=== PATIENT | female | born 1985 | race Caucasian/White ===

== ENCOUNTER 2021-03-18 | Outpatient (REF) | payer OTHER, SELFPAY ==
[2021-03-18 23:58] LABS: CT PCR NOT DETECTED (Not Detect.); NG PCR NOT DETECTED (Not Detect.)
== END 2021-03-18 00:01 | disposition home or self-care (01) ==
LOC: HO.LAB
PROVIDERS: Visit Provider Internal Medicine
DX: Z11.3 Encounter for screening for infections with a predominantly sexual mode of transmission (principal)
CPT/HCPCS: 87491; 87591

== ENCOUNTER 2022-01-25 10:40 | Outpatient (REF) | payer OTHER, SELFPAY ==
[2022-01-25 13:42] LABS: MANUAL DIFF FLAG NO
[2022-01-25 13:45] LABS: Basophils Absolute Auto 0.1 X10*3/uL (0.0-0.2); Basophils Percent Auto 0.9 % (0-2); Eosinophils Percent Auto 0.7 % (0-4); Hematocrit 42.2 % (37.0-47.0); Hemoglobin 14.1 g/dl (12.0-16.0); Imm Gran Abs Auto 0.02 X10*3/uL (0.00-0.03); Imm Gran Pct Auto 0.3 % (0.0-0.4); Lymphocytes Absolute Auto 2.2 X10*3/uL (1.2-4.9); Lymphocytes Percent Auto 38.2 % (20-40); Mean Corpuscular HGB Conc 33.4 g/dl (31.0-35.0); Mean Corpuscular Hemoglobin 31.5 pg (27.0-33.0); Mean Corpuscular Volume 94.2 fL (80.0-98.0); Mean Platelet Volume 10.2 fL (9.4-12.3); Monocytes Absolute Auto 0.6 X10*3/uL (0.1-1.2); Monocytes Percent Auto 11.1 % (2-11); Neutrophils Absolute Auto 2.8 x10*3/uL (2.0-8.3); Neutrophils Percent Auto 48.8 % (45-73); Platelet Count 338 X10*3/uL (160-400); Red Blood Count 4.48 X10*6/uL (4.20-5.50); Red Cell Distribution Width 12.3 % (11.0-16.0); White Blood Count 5.8 X10*3/uL (4.8-10.8)
[2022-01-25 14:04] LABS: Alanine Aminotransferase 13 U/L (0-31); Albumin Level 4.7 g/dL (3.5-5.0); Alkaline Phosphatase 77 U/L (39-117); Anion Gap 11 (12-20); Aspartate Amino Transferase 14 U/L (5-31); Bilirubin Total 0.7 mg/dL (0.0-1.0); Blood Urea Nitrogen 9 mg/dL (9-16); Calcium 9.1 mg/dL (8.4-10.2); Carbon Dioxide 27 mmol/L (22-29); Chloride 101 mmol/L (96-108); Cholesterol 176 mg/dL; Estimated Glomerular Filt Rate > 60; Glucose Fasting 86 mg/dL (60-99); HDL Cholesterol 51 mg/dL; Iron 151 mcg/dL (30-160); LDL Cholesterol Calculated 109 mg/dl; Percent Iron Saturation 40 % (15-50); Sodium 135 mmol/L (135-145); Total Iron Binding Capacity 376 mcg/dL (228-428); Total Protein 6.9 g/dL (6.5-8.0); Triglycerides 80 mg/dL; Unsaturated Iron Binding 225 ug/dL
[2022-01-25 14:17] LABS: Syphilis Screen Nonreactive (Nonreactive)
[2022-01-25 14:24] LABS: TSH reflex Free T4 1.48 uIU/mL (0.32-4.0)
[2022-01-25 14:34] LABS: Folate 17.2 ng/mL (> or = 4.0); Vitamin B12 726 pg/mL (200-900)
[2022-01-25 16:22] LABS: CT PCR NOT DETECTED (Not Detect.); NG PCR NOT DETECTED (Not Detect.)
[2022-01-26 08:33] LABS: HBS Num1 28.96 mIU/mL (0-7.99); HBc Num1 0.15 S/CO (0.00-0.79); Hepatitis B Core Antibody Nonreactive (Nonreactive); ~HepC Num1 0.07 S/CO (0.00-0.79); ~Hepatitis B Surface Antibody REACTIVE (Nonreactive); ~Hepatitis C Antibody Nonreactive (Nonreactive)
[2022-01-26 08:43] LABS: HBsAGNum1 0.18 S/CO (0.00-0.99); HIV AB/AG Nonreactive (Nonreactive); HIV Num 1 0.07 S/CO (0.00-0.99); Hepatitis B Surface Antigen Negative (Negative)
== END 2022-01-25 10:41 | disposition home or self-care (01) ==
LOC: HO.HMGCLDS 10:40
PROVIDERS: PCP Internal Medicine; Visit Provider Internal Medicine
DX: Z00.00 Encounter for general adult medical examination without abnormal findings (principal); Z11.4 Encounter for screening for human immunodeficiency virus [HIV]; Z11.3 Encounter for screening for infections with a predominantly sexual mode of transmission; Z78.9 Other specified health status; Z83.49 Family history of other endocrine, nutritional and metabolic diseases
CPT/HCPCS: 36415; 80053; 80061; 82306; 82607; 82746; 83540; 84443; 85025; 86704; 86706; 86780; 86803; 87340; 87389; 87491; 87591

== ENCOUNTER → 2022-03-22 11:07 | Outpatient (BNVA) | payer OTHER, SELFPAY | PROVIDERS: PCP Internal Medicine; Referring Provider Internal Medicine; Visit Provider Surgery | DX: K64.4 Residual hemorrhoidal skin tags (principal); D17.1 Benign lipomatous neoplasm of skin and subcutaneous tissue of trunk | CPT/HCPCS: 46600 ==

== ENCOUNTER 2022-03-27 11:00 | Outpatient (REF) | payer OTHER, SELFPAY ==
[2022-03-27 14:45] LABS: Syphilis Screen Nonreactive (Nonreactive)
[2022-03-27 15:28] LABS: CT PCR NOT DETECTED (Not Detect.); NG PCR NOT DETECTED (Not Detect.)
[2022-03-28 05:03] LABS: HIV AB/AG Nonreactive (Nonreactive); HIV Num 1 0.06 S/CO (0.00-0.99); ~HepC Num1 0.08 S/CO (0.00-0.79); ~Hepatitis C Antibody Nonreactive (Nonreactive)
== END 2022-03-27 11:01 | disposition home or self-care (01) ==
LOC: HO.HMGCLDS 11:00
PROVIDERS: PCP Internal Medicine; Visit Provider Internal Medicine
DX: Z11.3 Encounter for screening for infections with a predominantly sexual mode of transmission (principal); Z11.4 Encounter for screening for human immunodeficiency virus [HIV]
CPT/HCPCS: 86780; 86803; 87389; 87491; 87591

== ENCOUNTER → 2022-06-08 11:03 | Outpatient (REF) | payer OTHER, SELFPAY | LOC: HO.SL 11:03 | PROVIDERS: PCP Internal Medicine; Visit Provider Internal Medicine | DX: G47.30 Sleep apnea, unspecified (principal); R06.83 Snoring | CPT/HCPCS: 95806 ==

== ENCOUNTER 2022-07-03 07:55 | Outpatient (REF) | payer OTHER, SELFPAY ==
[2022-07-03 07:59] VITALS: BMI 24.3
[2022-07-03 08:01] VITALS: BP 124/80; PULSE 84; RESP 16; TEMP 36.7; O2SAT 98
--- NOTE | 2022-07-03 08:56 | W.PM.OPN ---
Operative Note Operative Note Date of Service: 07/03/22 Narrative: Preop diagnosis: Lipoma, back Postop diagnosis: Large lipoma, back Procedure: Excision of a large lipoma under local anesthesia from the back Surgeon: Suleiman Sauceda MD The patient is a 36-year-old female with a large lipoma on the back. . She wanted this removed. She understood the technique of the procedure under local anesthesia. She was brought to the minor procedure room and placed in prone position. The area of the lipomas prepped and draped. Lidocaine 1% was used for local anesthesia. I made an incision in the skin overlying the lipoma using blade 15. And this was carried down through the full-thickness of the skin and subcutaneous fat until I was able to see lipomatous tissue. I sharply dissected the lipoma off the rest of the subcutaneous layer. The lipoma extended deep into the subcutaneous layer and actually was much larger than initially thought of on examination. We had to do a lot of dissection using the Metzenbaum scissors until able to completely release the lipoma off posteriorly from the deeper subcutaneous tissue. The lipoma measured about 6.5 cm x 4 cm in diameter. I copies irrigated. I made sure that there was good hemostasis. Once hemostasis was confirmed, I closed the incision with full-thickness nylon 3-0 interrupted sutures. Dressings were applied. The procedure was completed The patient tolerated procedure well. There were no complication noted. Estimated blood loss about 25 cc The patient was given wound care instructions and will be seen in the office for postop visit.
== END 2022-07-03 07:56 | disposition home or self-care (01) ==
LOC: HO.MS 07:55
PROVIDERS: PCP Internal Medicine; Visit Provider Surgery
PROC: (CPT 21931; principal; 2022-07-03 08:00)
DX: D17.1 Benign lipomatous neoplasm of skin and subcutaneous tissue of trunk (principal)
CPT/HCPCS: 21931; 88304

== ENCOUNTER 2022-08-30 14:05 | Outpatient (REF) | payer OTHER, SELFPAY ==
--- NOTE | ~2022-08-30 | US_ITS ---
EXAMINATION: MM DIAGNOSTIC DIGITAL BREAST TOMOSYNTHESIS, BILATERAL US TARGETED BREAST, RIGHT CLINICAL INFORMATION: Right breast mass 7 o'clock position. Patient says that this has come and gone with her period. COMPARISON: Mammography: None. TECHNIQUE: Digital breast tomosynthesis is performed in both the craniocaudal and mediolateral oblique views along with computer-aided detection (CAD). Synthesized 2D images are generated from the tomosynthesis. Targeted right breast ultrasound. FINDINGS: The breasts are extremely dense, which lowers the sensitivity of mammography (ACR BI-RADS breast composition Category d). There are a few partially-circumscribed densities noted within the right breast with one dominant one in the anterior aspect of the right breast measuring approximately 3.4 x 1.9 x 2.1 cm in size. No significant left breast abnormalities appreciated. Numerous simple and minimally complex cysts are seen throughout the right breast. At approximately the 1 o'clock position of the right breast 1 cm from the nipple there is a solid heterogeneous echotexture hypoechoic circumscribed lesion without internal vascularity and with some mild distal sound enhancement likely representing a fibroadenoma. Ultrasound-guided core biopsy is recommended. Results are discussed with the patient at time of visit. US/US breast RT limited IMPRESSION: Numerous right breast cysts. Single solid lesion as described above within the right breast for which ultrasound-guided core biopsy is recommended. The above recommendation will be called to referring provider's office by the mammography center lacquer dipping machine operator. ASSESSMENT: BI-RADS 4: Suspicious (subcategory 4A: Low suspicion for malignancy) RECOMMENDATION: Ultrasound-guided core biopsy. This patient's information was entered into a reminder system with a target due date for their next mammogram. Report called to Chelsy at the referring provider's office.
== END 2022-08-30 14:06 | disposition home or self-care (01) ==
LOC: HO.MAMMO 14:05
PROVIDERS: Visit Provider Internal Medicine
DX: N63.11 Unspecified lump in the right breast, upper outer quadrant (principal)
CPT/HCPCS: 76642; 77062; 77066

== ENCOUNTER 2022-09-11 10:03 | Outpatient (REF) | payer OTHER, SELFPAY ==
--- NOTE | ~2022-09-11 | MM_ITS ---
EXAMINATION: ULTRASOUND GUIDED CORE BIOPSY BREAST, RIGHT POST PROCEDURE DIGITAL BREAST TOMOSYNTHESIS, RIGHT CLINICAL INFORMATION: Oval mass central 1:00 right breast noted on recent diagnostic imaging. Age 36. Patient notes palpable area for tissue sampling has been chronic without significant change past several years. COMPARISON: Diagnostic mammography and right breast ultrasound 08/30/2022. FINDINGS: Proper informed consent is obtained from the patient after discussion of the procedure, potential risks and complications, and alternatives. Patient was given an opportunity for questions. The patient appeared to understand. The patient consented to the procedure and signed the consent form. GUIDANCE: Ultrasound-guided; aseptic technique. LESION: Heterogeneous oval hypoechoic mass central 1:00 anterior right breast measuring 3.4 x 1.9 x 2.1 cm. Differential considerations include fibroadenoma, PASH, other. APPROACH: Oblique mediolateral. ANESTHESIA: 10 mL carbonated 1% lidocaine. DERMATOTOMY: Single skin racquel dermatotomy performed. NEEDLE: 14-gauge Achieve core biopsy device with 13.5-gauge co-axial guide needle. CORES: 5. CLIP: HydroMARK; shape: butterfly. POST PROCEDURE UNILATERAL DIGITAL BREAST TOMOSYNTHESIS: The post biopsy mammogram is performed in separate room using separate digital mammography equipment from the biopsy procedure. CC and ML views are obtained. 2-D synthesized images are generated from the tomography. The breasts are heterogeneously dense, which may obscure small masses (breast composition category: c). The clip marker is in position. No gross hematoma. The patient tolerated the procedure well. No immediate complications. Home instructions reviewed with the patient. Final pathology results are pending. MM/MM tomosynthesis diagnostic RT IMPRESSION: 1. Status post ultrasound-guided core biopsy right breast. 2. Clip placed: HydroMARK; shape: butterfly. 3. Pathology pending. An addendum report will be issued.
[2022-09-11] MEDS: Lidocaine HCl 1 % 20 ML VIAL 9 ML SUBCUT (11:21)
[2022-09-11] MEDS: Sodium Bicarbonate 8.4% 50 MEQ/50 ML VIAL SUBCUT (11:22)
== END 2022-09-11 10:04 | disposition home or self-care (01) ==
LOC: HO.MAMMO 10:03
PROVIDERS: PCP Internal Medicine; Visit Provider Internal Medicine
DX: N63.12 Unspecified lump in the right breast, upper inner quadrant (principal)
CPT/HCPCS: 19083; 77061; 77065; 88305

== ENCOUNTER 2023-01-05 10:26 | Outpatient (REF) | payer OTHER, SELFPAY ==
[2023-01-05 12:53] LABS: MANUAL DIFF FLAG NO
[2023-01-05 13:00] LABS: Basophils Absolute Auto 0.1 X10*3/uL (0.0-0.2); Basophils Percent Auto 1.6 % (0-2); Eosinophils Absolute Auto 0.1 X10*3/uL (0.0-0.4); Eosinophils Percent Auto 1.3 % (0-4); Hematocrit 41.7 % (37.0-47.0); Imm Gran Abs Auto 0.01 X10*3/uL (0.00-0.03); Imm Gran Pct Auto 0.2 % (0.0-0.4); Lymphocytes Absolute Auto 2.1 X10*3/uL (1.2-4.9); Mean Corpuscular HGB Conc 33.6 g/dl (31.0-35.0); Mean Corpuscular Hemoglobin 31.1 pg (27.0-33.0); Mean Corpuscular Volume 92.7 fL (80.0-98.0); Mean Platelet Volume 9.7 fL (9.4-12.3); Monocytes Absolute Auto 0.5 X10*3/uL (0.1-1.2); Monocytes Percent Auto 10.4 % (2-11); Neutrophils Absolute Auto 1.8 x10*3/uL (2.0-8.3); Neutrophils Percent Auto 39.5 % (45-73); Platelet Count 353 X10*3/uL (160-400); Red Cell Distribution Width 12.8 % (11.0-16.0); White Blood Count 4.5 X10*3/uL (4.8-10.8)
[2023-01-05 13:12] LABS: Glucose Fasting 88 mg/dL (60-99)
[2023-01-05 13:52] LABS: Folate 15.6 ng/mL (> or = 4.0); TSH reflex Free T4 1.87 uIU/mL (0.32-4.0); Vitamin D 25-OH Total 30.8 ng/mL (>30)
[2023-01-05 13:54] LABS: Vitamin B12 564 pg/mL (200-900)
[2023-01-08 12:02] LABS: HIV AB/AG Nonreactive (Nonreactive); HIV Num 1 0.05 S/CO (0.00-0.99)
== END 2023-01-05 10:27 | disposition home or self-care (01) ==
LOC: HO.HMGCLDS 10:26
PROVIDERS: Visit Provider Internal Medicine
DX: Z00.00 Encounter for general adult medical examination without abnormal findings (principal); Z13.1 Encounter for screening for diabetes mellitus; Z11.3 Encounter for screening for infections with a predominantly sexual mode of transmission; Z11.4 Encounter for screening for human immunodeficiency virus [HIV]; B00.9 Herpesviral infection, unspecified; L65.9 Nonscarring hair loss, unspecified; Z78.9 Other specified health status; R53.83 Other fatigue; E55.9 Vitamin D deficiency, unspecified; Z83.3 Family history of diabetes mellitus
CPT/HCPCS: 36415; 82306; 82607; 82746; 82947; 84443; 85025; 87389

== ENCOUNTER 2023-05-30 12:59 | Outpatient (REF) | payer OTHER, SELFPAY ==
[2023-05-31 06:47] LABS: CT PCR NOT DETECTED (Not Detect.); NG PCR NOT DETECTED (Not Detect.)
[2023-05-31 15:20] LABS: BV Int Neg Control Negative (Negative); BV Int Pos Control Positive (Positive)
[2023-06-05 05:09] LABS: HPV mRNA E6/E7 rflx Not Detected (Not Detected)
== END 2023-05-30 13:00 | disposition home or self-care (01) ==
LOC: HO.LNP 12:59
PROVIDERS: PCP Internal Medicine; Visit Provider Advanced Practice Midwife
DX: Z01.419 Encounter for gynecological examination (general) (routine) without abnormal findings (principal); Z11.51 Encounter for screening for human papillomavirus (HPV); Z20.2 Contact with and (suspected) exposure to infections with a predominantly sexual mode of transmission
CPT/HCPCS: 0353U; 87480; 87510; 87624; 87660; 88142

== ENCOUNTER 2023-05-30 12:59 | Outpatient (AMB) | payer OTHER, SELFPAY ==
[2023-05-30 13:22] VITALS: BP 122/80; BMI 25.4
--- NOTE | 2023-05-30 13:22 | A.OFFVIS_ITS ---
Intake Vital Signs 05/30/23 13:22 Height 5 ft 2.5 in Weight 141 lb BMI 25.4 BP 122/80 Intake Visit Reasons: New patient Annual Intake Note: would like to remove IUD Leadership Development Manager Required: No Information Interpreted: non-clinical & clinical Protective Signal Superintendent: Protective Signal Superintendent Present (Aidyn) Allergies No Known Allergies Allergy (Verified 05/30/23 13:26) Medication List - Last Reconciled 05/30/23 by Tamera Colmenares CNM cholecalciferol (vitamin D3) 25 mcg PO DAILY copper (ParaGard T 380A) intrauterine valacyclovir 1,000 mg PO TID 7 days Is last menstrual period known: Yes Last menstrual period: 05/03/23 Post menopausal: No HPI New patient Annual HPI Details Is here for new physician gynecologist exam. She describes herself as healthy. She has had a ParaGard IUD for number of years 4 years in total this is her 2nd 1 the 1st 1 she pulled out by accident when she thought it was a tampon [facility] loves the ParaGard IUD and wishes she had had it earlier as she did not feel well on hormones. She would like it removed because she and her partner of some number of years have decided they are ready to have a baby and she will be very happy if it could be taken out today so they could start. She takes a multivitamin every day and she eats very healthy and she does hot yoga. She has had in the past herpes infection around her right eye and for that she takes valacyclovir if she is aware of situations where it might recur for instance if she is in the out the hot sun her something it has been since she was a baby. She has never had it genitaly or anywhere else. She did have an abnormal Pap smear some years ago and she had a colposcopy done at [facility] and everything was okay. Patient also has a history of very having very lumpy breasts and she had a mammogram and she had a breast biopsy with Dr. Denny and was told that everything is fine and that she just has very lumpy breast and her next mammogram will be at age 42. 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 Screen for STD (sexually transmitted disease) Vegan diet Surgical History No pertinent past surgical history Family History (Updated 05/30/23 @ 13:28 by TAYO Méndez) Father History of hypertension Hx of diabetes mellitus Linda's thyroiditis Mother History of hypertension Substance use disorder Paternal Grandmother Diabetes mellitus Family/Other Uterine cancer Social History Housing: Apartment Alcohol intake: current Patient Tobacco Use Status: Former Tobacco user Years Smoked: 7 e-Cigarette/Vaping Use: Former Use service: No Current occupational status: employed Cognitive needs: No Hearing needs: No Vision needs: No Female Reproductive History Menstrual Age of Menarche: 12 Duration of menses: 3-5 days Date of last menstrual period: 05/03/23 control method: copper IUCD Total pregnancies: 0 Date of Mammogram: 09/11/22 Physical Exam Vital Signs: Last Vital Signs BP 122/80 05/30/23 13:22 BMI result Body Mass Index 25.4 Const General: healthy appearing, comfortable, no acute distress, well developed and alert Nutritional Appearance: average body habitus Orientation/consciousness: patient oriented x3 Limitations: no limitations HEENT Head: Yes normocephalic Neck Neck: Yes normal visual inspection Thyroid: Thyroid normal Chest Chest palpation & inspection: normal inspection of the chest Breast/axilla inspection: normal inspection of the breasts and normal inspection of the axillae Breast/axilla palpation: normal palpation of the breasts and normal palpation of the axillae Resp Effort & Inspection: normal respiratory effort GI Inspection: Yes normal to inspection, No Abdominal wall edema and No distended Palpation (GI): Soft to palpation and nontender Other: After discussing pre conception issues at length with her she was very clear she would love to have a taken out today. The ParaGard strings were easily visible and were grasped with ring forceps and I had her give A/B cough and it did not budge and I repeated the procedure at her request it also did not budge this time she did not feel anything and was not uncomfortable at all I am ordering of the ultrasound to assess on its location and be sure it is not imbedded. She and I will have a tele visit after that but her follow-up visit will be with Dr. Ponce to discuss removal. Depending on the findings of the ultrasound we may have her come with her menses as it may make it easier. I did send her prescription for vitamins so she can start those now. I also gave her a list of [facility] practices is that was where she would like to go for delivery and care and I recommend she seek out care with the folks who would be involved in her delivery though she would like to stay here until she can establish care there.. At this time given that she still has the IUD in she can probably wait to make those appointments. General: Yes bladder normal to palpation External Female Exam: normal external appearance and normal appearance of the urethra Speculum Exam - Vagina: normal appearance of the vagina, normal palpation and normal vaginal discharge Speculum Exam - Cervix: normal appearance of the cervix, normal palpation and nontender Bimanual exam- vagina & uterus: normal bimanual exam, normal palpation, uterine size normal, bladder normal to palpation, consistency normal, normal palpation, uterine mobility normal, uterine shape normal, No Cervical tenderness present, non-tender and no cervical motion tenderness Bimanual Exam- Adnexa, other: normal adnexae, no masses, normal and No adnexal tenderness Neuro General: patient oriented x3 Assessment & Plan Assessment & Plan (1) Breast nodule: Code(s): N63.0 - Unspecified lump in unspecified breast (2) Screen for STD (sexually transmitted disease): Code(s): Z11.3 - Encounter for screening for infections with a predominantly sexual mode of transmission (3) Cervical cancer screening: Code(s): Z12.4 - Encounter for screening for malignant neoplasm of cervix (4) Attempted IUD removal, unsuccessful: Code(s): Z53.8 - Procedure and treatment not carried out for other reasons; Z97.5 - Presence of (intrauterine) contraceptive device (5) Family planning education, guidance, and counseling: Code(s): Z30.09 - Encounter for other general counseling and advice on contraception (6) Hx of abnormal cervical Pap smear: Code(s): Z87.42 - Personal history of other diseases of the female genital tract Plan -----Discussed in this visit the following: healthy balanced diet, regular and consistent exercise, getting recommended health screens, doing the best she can for her particular health concerns, kegel exercises, pap smear screening and followup recommendations, mammography screening and SBE, normal changes in cycles in her life stage--- . A discussed her general health and issues to be conscious of when thinking about conception this will be a good time to start vitamins. Discussed avoiding toxic situations in general and we did discuss general overall pre gnancy preparation. -------- After discussing pre conception issues at length with her she was very clear she would love to have a taken out today. The ParaGard strings were easily visible and were grasped with ring forceps and I had her give A/B cough and it did not budge and I repeated the procedure at her request it also did not budge this time she did not feel anything and was not uncomfortable at all I am ordering of the ultrasound to assess on its location and be sure it is not imbedded. She and I will have a tele visit after that but her follow-up visit will be with Dr. Ponce to discuss removal. Depending on the findings of the ultrasound we may have her come with her menses as it may make it easier. I did send her prescription for vitamins so she can start those now. I also gave her a list of [facility] practices is that was where she would like to go for delivery and care and I recommend she seek out care with the folks who would be involved in her delivery though she would like to stay here until she can establish care there.. At this time given that she still has the IUD in she can probably wait to make those appointments. Orders: Orders Bacterial Vaginosis Panel Today Z01.419 - Encounter for gynecological examination (general) (routine) without abnormal findings CT NG by PCR Today Z01.419 - Encounter for gynecological examination (general) (routine) without abnormal findings US pelvic and transvaginal Today N63.0 - Unspecified lump in unspecified breast, Z11.3 - Encounter for screening for infections with a predominantly sexual mode of transmission, Z12.4 - Encounter for screening for malignant neoplasm of cervix, Z30.09 - Encounter for other general counseling and advice on contraception, Z53.8 - Procedure and treatment not carried out for other reasons, Z97.5 - Presence of (intrauterine) contraceptive device Pap Smear Today Z01.419 - Encounter for gynecological examination (general) (routine) without abnormal findings Medications: New PNV,calcium [id number] acid 27 mg iron- 1 mg ( Vitamins Plus Low Iron) 1 tab PO DAILY 90 tabs 1RF Coding Level of Care Code New Pt Prev Care 18-39yr([id number] Diagnoses Breast nodule N63.0 Screen for STD (sexually transmitted disease) Z11.3 Cervical cancer screening Z12.4 Attempted IUD removal, unsuccessful Z53.8; Z97.5 Family planning education, guidance, and counseling Z30.09 Hx of abnormal cervical Pap smear Z87.42
== END 2023-05-30 15:00 | disposition home or self-care (01) ==
LOC: HO.HWS 12:59
PROVIDERS: PCP Internal Medicine; Visit Provider Advanced Practice Midwife
DX: Z01.419 Encounter for gynecological examination (general) (routine) without abnormal findings (principal); N63.0 Unspecified lump in unspecified breast; Z11.3 Encounter for screening for infections with a predominantly sexual mode of transmission; Z53.8 Procedure and treatment not carried out for other reasons; Z97.5 Presence of (intrauterine) contraceptive device; Z30.09 Encounter for other general counseling and advice on contraception; Z87.42 Personal history of other diseases of the female genital tract
CPT/HCPCS: 99385

== ENCOUNTER 2023-05-31 13:45 | Outpatient (REF) | payer OTHER, SELFPAY ==
--- NOTE | ~2023-05-31 | US_ITS ---
EXAMINATION: US PELVIS CLINICAL INFORMATION: Status post ICD placement; the last menstrual period was on 04/23/2023. COMPARISON: None available. TECHNIQUE: Ultrasound of the pelvis is performed using both transabdominal and transvaginal transducers along with Doppler. Transvaginal imaging is performed due to inadequate visualization transabdominally. FINDINGS: Uterus: The uterus is anteverted and measures 8.9 x 3.3 x 4.6 cm. The uterus is anteverted and anteflexed. The double wall endometrial thickness is 1.8 mm. An intrauterine device is seen, situated somewhat low within the lower uterine segment and cervix. The uterus is smooth in contour and has normal myometrial echogenicity. No visible fibroid. Adnexa: Both ovaries are visualized. There is normal color flow to the adnexa. There is no ovarian torsion. There is a small amount nonspecific free fluid in the cul-de-sac. Right ovary measures 4.0 x 2.8 x 2.7 cm, volume 15.8 mL. Multiple physiologic follicles are incidentally seen. Left ovary measures 3.5 x 2.0 x 2.0 cm, volume 7.3 mL. Multiple physiologic follicles are incidentally seen. US/US pelvic and transvaginal IMPRESSION: 1. An intrauterine device is seen, situated somewhat low within the lower uterine segment and cervix. 2. There is abnormal thickening of the endometrial stripe to 1.8 cm. Gynecology evaluation and management is recommended, with consideration for tissue sampling, if clinically appropriate. At a minimum, short-term follow-up ultrasound imaging is recommended to ensure regression/resolution. 3. There is a small amount nonspecific free fluid in the cul-de-sac.
== END 2023-05-31 13:46 | disposition home or self-care (01) ==
LOC: HO.US 13:45
PROVIDERS: Visit Provider Advanced Practice Midwife
DX: Z97.5 Presence of (intrauterine) contraceptive device (principal)
CPT/HCPCS: 76830; 76856

== ENCOUNTER 2023-06-07 10:12 | Outpatient (AMB) | payer OTHER, SELFPAY ==
--- NOTE | 2023-06-07 10:12 | MHC.OFFVIS ---
Intake Intake Visit Reasons: TV Ultrasound Follow up Monitoring And Evaluation Advisor Required: No Allergies No Known Allergies Allergy (Verified 06/07/23 10:13) Medication List - Last Reconciled 06/07/23 by Tamera Colmenares CNM cholecalciferol (vitamin D3) 25 mcg PO DAILY copper (ParaGard T 380A) intrauterine PNV,calcium 33-ksby-[id number] acid 27 mg iron- 1 mg ( Vitamins Plus Low Iron) 1 tab PO DAILY valacyclovir 1,000 mg PO TID 7 days Is last menstrual period known: Yes Last menstrual period: 06/05/23 HPI TV Ultrasound Follow up HPI Details This is a tele visit to review patient's ultrasound that was done to verify location of the IUD which was unable to be removed at the last visit. There was also a long discussion about fertility issues and trying to get and the thickened endometrial lining it was 1.8 cm on ultrasound which was done immediately before the start of her menses. She has noticed that sometimes her menstrual flow is a little different lately it can be 3-5 days heavy at the start and lightening up or sometimes 1 just 1 day heavy but it does come regular she is not quite sure of symptoms of ovulation. But she was concerned about the ultrasound finding of the thickened lining and wanted to did explore that somewhat. She wants the IUD out so she can conceive and she has an appointment at the end of the month Dr. Ponce for removal. Tracking her cycle though she is not aware of symptoms of ovulation the other than she thinks she gets irritable for a couple of weeks before her. But does not identify specific ovulation symptoms. She had Google lots of issues and was concerned that the thickened lining might mean increased chance of infertility and problem with too much estrogen. She gets regular cycles. 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 Screen for STD (sexually transmitted disease) Vegan diet Surgical History No pertinent past surgical history Family History Father History of hypertension Hx of diabetes mellitus Linda's thyroiditis Mother History of hypertension Substance use disorder Paternal Grandmother Diabetes mellitus Family/Other Uterine cancer Social History Housing: Apartment Alcohol intake: current Patient Tobacco Use Status: Former Tobacco user Years Smoked: 7 e-Cigarette/Vaping Use: Former Use service: No Current occupational status: employed Cognitive needs: No Hearing needs: No Vision needs: No Female Reproductive History Menstrual Age of Menarche: 12 Date of last menstrual period: 06/05/23 Date of last pap smear: 05/31/23 Results Reviewed Results Reviewed: Patient: Nighat Dorsey MR#: [id number] : 1985 Acct:[id number] Age/Sex: 37 / F ADM Date: 05/31/23 Loc: HO.US Attending Dr: Tamera Colmenares CNM Ordering Physician: Tamera Colmenares CNM Date of Service: 05/31/23 Procedure(s): US pelvic and transvaginal Accession Number(s): [id number] cc: Tamera Colmenares CNM~ EXAMINATION:? US PELVIS CLINICAL INFORMATION:? Status post ICD placement; the last menstrual period was on 04/23/2023. COMPARISON: None available. TECHNIQUE: Ultrasound of the pelvis is performed using both transabdominal and transvaginal transducers along with Doppler. Transvaginal imaging is performed due to inadequate visualization transabdominally. FINDINGS: Uterus: The uterus is anteverted and measures 8.9 x 3.3 x 4.6 cm. The uterus is anteverted and anteflexed. The double wall endometrial thickness is 1.8 mm. An intrauterine device is seen, situated somewhat low within the lower uterine segment and cervix. The uterus is smooth in contour and has normal myometrial echogenicity. No visible fibroid. Adnexa: Both ovaries are visualized. There is normal color flow to the adnexa. There is no ovarian torsion. There is a small amount nonspecific free fluid in the cul-de-sac. Right ovary measures 4.0 x 2.8 x 2.7 cm, volume 15.8 mL. Multiple physiologic follicles are incidentally seen. Left ovary measures 3.5 x 2.0 x 2.0 cm, volume 7.3 mL. Multiple physiologic follicles are incidentally seen. US/US pelvic and transvaginal IMPRESSION: ? 1. An intrauterine device is seen, situated somewhat low within the lower uterine segment and cervix. ? 2. There is abnormal thickening of the endometrial stripe to 1.8 cm. Gynecology evaluation and management is recommended, with consideration for tissue sampling, if clinically appropriate. At a minimum, short-term follow-up ultrasound imaging is recommended to ensure regression/resolution. ? 3. There is a small amount nonspecific free fluid in the cul-de-sac. ? Dictated By: Pedro Rivera MD Signed By: <Electronically signed by Pedro Rivera MD in OV> 06/04/23 0956 DD/ 1423 TD/TT:? Documentation Engineer: WALDEMAR Assessment & Plan Assessment & Plan (1) Attempted IUD removal, unsuccessful: Comment: See ultrasound. IUD is somewhat low in endometrial cavity with a thickened endometrium to be correlated with patient's menses. Follow-up visit but tele visit is 06/07, an appointment for possible removal with Dr. Ponce is at the end of the month. Code(s): Z53.8 - Procedure and treatment not carried out for other reasons; Z97.5 - Presence of (intrauterine) contraceptive device (2) Hx of abnormal cervical Pap smear: Code(s): Z87.42 - Personal history of other diseases of the female genital tract (3) Thickened endometrium: Comment: With normal menstrual cycles using ParaGard IUD ultrasound done the day before her menses. desires to conceive after removal of IUD. Code(s): R93.89 - Abnormal findings on diagnostic imaging of other specified body structures (4) Family planning education, guidance, and counseling: Code(s): Z30.09 - Encounter for other general counseling and advice on contraception Plan This is a tele visit to review patient's ultrasound that was done to verify location of the IUD which was unable to be removed at the last visit. There was also a long discussion about fertility issues and trying to get and the thickened endometrial lining it was 1.8 cm on ultrasound which was done immediately before the start of her menses. She has noticed that sometimes her menstrual flow is a little different lately it can be 3-5 days heavy at the start and lightening up or sometimes 1 just 1 day heavy but it does come regular she is not quite sure of symptoms of ovulation. But she was concerned about the ultrasound finding of the thickened lining and wanted to did explore that somewhat. She wants the IUD out so she can conceive and she has an appointment at the end of the month Dr. Ponce for removal. Tracking her cycle though she is not aware of symptoms of ovulation the other than she thinks she gets irritable for a couple of weeks before her. But does not identify specific ovulation symptoms. She had Google lots of issues and was concerned that the thickened lining might mean increased chance of infertility and problem with too much estrogen. She gets regular cycles. Discussed the plan. She has an appointment with Dr. Ponce for removal at the end of the month it may be a crampy removal if he is not successful she may speaking with him about planning a surgical procedure to remove it. During the visit she can further discuss the issue of the endometrial lining though since she is cycling regularly and the finding was right before the day of her period start it makes sense at the very minimum she would have an ultrasound repeated in a couple of months and it should be done after her. Unless some evaluation occurs in in a surgical procedure(for removal of the ParaGard surgically.) I also again reviewed pre conception issues and as she is 37 years old once the ParaGard is removed I recommend she keep very close careful track of her menstrual cycle symptoms of ovulation and consider doing OPKay's as well not to increase her anxiety, but to have documentary evidence should she have some delay in conception and be needing to seek out infertility care she would already have records of her cycles and ovulation written down to not delay evaluation. Telehealth Telehealth Location of provider rendering services: practice address Location of patient: address on file Patient Identification confirmed using: Name, : Yes Telehealth method: video Patient verbally consented to treatment: Yes Patient verbally consented to billing insurance company: Yes Patient informed of any privacy concerns related to visit: Yes Minutes spent on Phone/Video with Pt.: 20 Coding Level of Care Code Tele Est Pt Level 3 (39253) Diagnoses Attempted IUD removal, unsuccessful Z53.8; Z97.5 Hx of abnormal cervical Pap smear Z87.42 Thickened endometrium R93.89 Family planning education, guidance, and counseling Z30.09 Time Spent (min) 30 Comment 1 cr/20 video visit with patient/9 charting
== END 2023-06-07 13:13 | disposition home or self-care (01) ==
LOC: HO.HWS 10:12
PROVIDERS: PCP Internal Medicine; Visit Provider Advanced Practice Midwife
DX: Z53.8 Procedure and treatment not carried out for other reasons (principal); Z97.5 Presence of (intrauterine) contraceptive device; Z87.42 Personal history of other diseases of the female genital tract; R93.89 Abnormal findings on diagnostic imaging of other specified body structures; Z30.09 Encounter for other general counseling and advice on contraception
CPT/HCPCS: 99213

== ENCOUNTER → 2023-06-07 10:12 | Outpatient (BNVA) | payer OTHER, SELFPAY | PROVIDERS: PCP Internal Medicine; Visit Provider Advanced Practice Midwife ==

== ENCOUNTER 2023-07-18 12:32 | Outpatient (AMB) | payer OTHER, SELFPAY ==
--- NOTE | 2023-07-18 12:42 | MHC.PC.OV ---
Vital Signs 07/18/23 12:46 Height 5 ft 2.5 in Weight 145 lb BMI 26.1 BP 120/80 Blood Pressure Location Rt brachial Position Sitting Pulse 75 Pulse Source Pulse Oximeter Pulse Oximetry (%) 98 Intake Visit Reasons: Physical exam Intake Note: pt is here for annual exam Utility Driver Required: No Accompanied by: Self / Same As Patient Is last menstrual period known: Yes (5 days ) Last menstrual period: 06/25/23 Allergies No Known Allergies Allergy (Verified 07/30/23 01:06) Medication List - Last Reconciled 07/18/23 by Evy Dominguez MD copper (ParaGard T 380A) intrauterine PNV,calcium 70-jiza-rmbcj acid 27 mg iron- 1 mg ( Vitamins Plus Low Iron) 1 tab PO DAILY valacyclovir 1,000 mg PO TID PRN Tobacco use date assessed: 07/18/23 Dental Screening Dental Screen Date: 07/18/23 Did you have a dental visit in the last 12 months?: Yes Did you have a dental problem in the last 6 months where you did not have access to dental care?: No Was dental information given to patient?: Patient has dentist HPI HPI Comments History of Present Illness Details 37-year-old lady here today for physical exam. She goes to [facility] for her routine Pap and pelvic exam, recently seen for an unsuccessful removal of her IUD. Has been having recurrent pain in her right lower back, occasionally radiating to right buttock, which has been present now on and off for the last several months. She has been taking it over [id number] NSAIDs and Tylenol which has afforded only temporary relief. Has recurrent HSV infection in right periorbital area, needs a refill on her valacyclovir. 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 Screen for STD (sexually transmitted disease) Adult general medical exam Vegan diet Family history of Linda thyroiditis Surgical History No pertinent past surgical history Family History Father History of hypertension Hx of diabetes mellitus Linda's thyroiditis Mother History of hypertension Substance use disorder Paternal Grandmother Diabetes mellitus Family/Other Uterine cancer Social History Housing: Apartment Alcohol intake: current Patient Tobacco Use Status: Former Tobacco user Years Smoked: 7 e-Cigarette/Vaping Use: Former Use Patient : No service: No Current occupational status: employed Cognitive needs: No Hearing needs: No Vision needs: No Female Reproductive History Menstrual Age of Menarche: 12 Date of last menstrual period: 06/25/23 Questionnaire PHQ-9 Over the last 2 weeks, how often have you been bothered by any of the following problems? 1. Little interest or pleasure in doing things: not at all 2. Feeling down, depressed, or hopeless: not at all 3. Trouble falling or staying asleep, or sleeping too much: several days 4. Feeling tired or having little energy: several days 5. Poor appetite or overeating: several days 6. Feeling bad about yourself - or that you are a failure or have let yourself or your family down: not at all 7. Trouble concentrating on things, such as reading the newspaper or watching television: not at all 8. Moving or speaking so slowly that other people could have noticed. Or the opposite - being so fidgety or restless that you have been moving around a lot more than usual: not at all 9. Thoughts that you would be better off or of hurting yourself in some way: not at all Total score: 3 Depression Screening Interpretation: Negative 57755 - PHQ-9 Billing: Yes Source: Developed by Drs. Erasmo Godinez, Missy Michel, Jamal Cox and colleagues, with an educational robert from [employer]. Thrive Questionnaire Date Thrive assessed: 02/20/22 I am a: Patient What is your living situation today?: I have a steady place to live Within the past 12 months, did the food you bought not last and you didn't have the money to get more?: Never true Within the past 12 months, did you worry whether your food would run out before you got money to buy more?: Never true Do you have trouble paying for medicines?: No Do you have trouble getting transportation to medical appointments?: No Do you have trouble paying your heating and electricity bill?: No Do you have trouble taking care of your child, family member or friend?: No Do you have trouble with day-to-day activities such as bathing, preparing meals, shopping, managing finances, etc.?: No Are you currently unemployed and looking for a job?: No Are you interested in more education?: No Please select the resources that you would like help with: None AUDIT C Alcohol Use Questionnaire (AUDIT-C) 1. How often do you have a drink containing alcohol?: Never Total Score: 0 ERIK-7 AMB Questionnaire ERIK-7 Date ERIK - 7 assessed: 02/20/22 Feeling nervous, anxious, or on edge: 1 = Several days Not being able to stop or control worryin = Not at all Worrying too much about different things: 0 = Not at all Trouble relaxin = Several days Being so restless that it is hard to sit still: 1 = Several days Becoming easily annoyed or irritable: 1 = Several days Feeling afraid as if something awful might happen: 0 = Not at all Total ERIK-7 score (0-4 normal; 5-9 mild; 10-14 moderate; 15-21 severe): 4 Source: Developed by Drs. Erasmo Godinez, Missy Michel, Jamal Cox and colleagues, with an educational robert from [employer]. ERIK-7 Assessment Billing ERIK-7 Assessment Tool: ERIK-7 Assessment 67445 Review of Systems Const Denies chills and Denies fever(s) Eyes Details: [facility], currently being seen for herpes in both eyes, currently on Valtrex Reports no additional complaints ENT Reports no additional complaints Card Denies chest pain and Denies dyspnea Resp Denies cough and Denies dyspnea GI Denies hematochezia and Denies change in bowel habits Denies hematuria Musc Reports as per HPI Skin/Breast Reports as per HPI, Denies breast pain and Denies breast mass Neuro Reports no additional complaints, Denies focal weakness and Denies convulsions Psych Denies depression and Denies mood swings Endo Reports no additional complaints Steve/Lymph Reports no additional complaints Aller/Immun Reports no additional complaints Physical exam (Primary Care) Vital Signs: Last Vital Signs Pulse 75 07/18/23 12:46 BP 120/80 07/18/23 12:46 Pulse Ox 98 07/18/23 12:46 BMI result Body Mass Index 26.1 Tobacco/Smoking Status: Tobacco use Status Tobacco use date assessed 07/18/23 07/18/23 12:49 Patient Tobacco Use Status Former Tobacco user 07/18/23 12:43 e-Cigarette/Vaping Use Former Use 07/18/23 12:43 PHQ-9: PHQ-9 Score PHQ-9: Total score 3 07/18/23 13:53 Depression Screening Interpretation: Negative Thrive Assessment: Date of Thrive Assessment Date Thrive assessed 02/20/22 07/18/23 12:43 Const Other: Alert oriented x3, no acute distress noted ambulatory normal gait Orientation/consciousness: patient oriented x3 HENMT Head: Yes normocephalic Ears: hearing grossly normal bilaterally and external ears normal General nose exam: Normal external nose present Face and sinus: Yes face symmetric Mouth: Normal oral and palatal mucosa present, tongue normal, oropharynx normal and moist mucous membranes Eyes General: appearance normal, both eyes and all related structures Neck Other: Supple, no lymphadenopathy, full range of motion, thyroid gland nonpalpable Chest Chest palpation & inspection: normal inspection of the chest Breast/axilla palpation: normal palpation of the breasts Resp Auscultation: clear to auscultation bilaterally Cardio Other: S1-S2 present regular rate and rhythm GI Other: Normal bowel sounds , nontender, no mass palpated General: Yes deferred Back/Spine/Pelvis Back: back tenderness (Right lower back) Skin General skin exam: no rashes or lesions noted Neuro General: patient oriented x3, gait normal, tone normal, moves all extremities, Normal light touch and pain sensation, no focal motor deficits and CN's II-XI intact bilaterally Extrem General: Yes full ROM, Yes no joint enlargement, Yes no pedal edema, Yes no calf tenderness and Yes normal gait Psych Appearance: grossly normal and well kempt Mental Status: mental status grossly normal Speech and movement: Normal speech and movement present Affect: normal affect Attitude: cooperative Thought process: Normal thought process present Assessment and Plan Assessment & Plan (1) Adult general medical exam: Code(s): Z00.00 - Encounter for general adult medical examination without abnormal findings Plan: Will check appropriate labs. Recommended dental visit every 6 months and regular eye exams, at least every 2 years. Take adequate calcium in diet and vitamin-D 3 at 2000 IU per cap once a day, in addition to weight-bearing exercises to help maintain good muscle tone and weight control. Instructed to do self-breast exam, and recommended to get yearly mammogram, starting at age 40. Goes to [facility] for her routine Pap and pelvic exam. 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: Comment: right periorbital area Code(s): B00.9 - Herpesviral infection, unspecified Plan: Valtrex refill sent (4) Chronic right sacroiliac pain: Code(s): M53.3 - Sacrococcygeal disorders, not elsewhere classified; G89.29 - Other chronic pain Plan: Referred for physical therapy (5) Encounter for physical examination: Code(s): Z00.00 - Encounter for general adult medical examination without abnormal findings Orders: Orders TSH reflex Free T4 07/18/23 Z83.49 - Family history of other endocrine, nutritional and metabolic diseases, Z00.00 - Encounter for general adult medical examination without abnormal findings, B00.9 - Herpesviral infection, unspecified PT Evaluation and Treatment 07/18/23 M53.3 - Sacrococcygeal disorders, not elsewhere classified, G89.29 - Other chronic pain Vitamin D 25-OH Total 07/18/23 Z83.49 - Family history of other endocrine, nutritional and metabolic diseases, Z00.00 - Encounter for general adult medical examination without abnormal findings, B00.9 - Herpesviral infection, unspecified Complete Blood Count Auto Diff 07/18/23 Z83.49 - Family history of other endocrine, nutritional and metabolic diseases, Z00.00 - Encounter for general adult medical examination without abnormal findings, B00.9 - Herpesviral infection, unspecified Glucose Fasting 07/18/23 Z83.49 - Family history of other endocrine, nutritional and metabolic diseases, Z00.00 - Encounter for general adult medical examination without abnormal findings, B00.9 - Herpesviral infection, unspecified Lipid Panel 07/18/23 Z83.49 - Family history of other endocrine, nutritional and metabolic diseases, Z00.00 - Encounter for general adult medical examination without abnormal findings, B00.9 - Herpesviral infection, unspecified Basic Metabolic Panel Fasting 07/18/23 Z83.49 - Family history of other endocrine, nutritional and metabolic diseases, Z00.00 - Encounter for general adult medical examination without abnormal findings, B00.9 - Herpesviral infection, unspecified Vitamin B12 and Folate 07/18/23 R53.83 - Other fatigue Medications: Changed From valacyclovir 1,000 mg PO TID 7 days 21 tabs 3RF B00.9 - Herpesviral infection, unspecified To valacyclovir 1,000 mg PO TID PRN B00.9 - Herpesviral infection, unspecified Coding Level of Care Code New Pt Prev Care 18-39yr([id number] Diagnoses Adult general medical exam Z00.00 Family history of Linda thyroiditis Z83.49 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
[2023-07-18 12:46] VITALS: BP 120/80; PULSE 75; O2SAT 98; BMI 26.1
== END 2023-07-18 13:31 | disposition home or self-care (01) ==
PROVIDERS: Visit Provider Internal Medicine
DX: Z00.00 Encounter for general adult medical examination without abnormal findings (principal); Z83.49 Family history of other endocrine, nutritional and metabolic diseases; B00.9 Herpesviral infection, unspecified; M53.3 Sacrococcygeal disorders, not elsewhere classified; G89.29 Other chronic pain
CPT/HCPCS: 99385

== ENCOUNTER 2023-07-19 14:03 | Outpatient (AMB) | payer OTHER, SELFPAY ==
[2023-07-19 14:09] VITALS: BP 118/76; BMI 26.1
--- NOTE | 2023-07-19 14:09 | MHC.OFFVIS ---
Intake Vital Signs 07/19/23 14:09 Height 5 ft 2.5 in Weight 145 lb BMI 26.1 BP 118/76 Intake Visit Reasons: Paragard removal/per Tamera High Rigger Required: No Information Interpreted: non-clinical & clinical Mergers And Acquisitions Attorney: Mergers And Acquisitions Attorney Present ([place]) Allergies No Known Allergies Allergy (Verified 07/19/23 14:15) Post menopausal: No Patient : No HPI HPI Comments History of Present Illness Details Presenting referred from Tamera Colmenares CNM regarding IUD removal pelvic ultrasound done on 05/31 showed IUD in the lower uterine segment, and the patient is interested in conception [facility] Medical History Chronic right sacroiliac pain TMJ dysfunction Breast nodule Breast lump in upper outer quadrant Hair thinning External hemorrhoids with complication Lipoma of back Recurrent nongenital herpes simplex virus (HSV) infection Screen for STD (sexually transmitted disease) Adult general medical exam Vegan diet Family history of Linda thyroiditis Surgical History No pertinent past surgical history Family History Father History of hypertension Hx of diabetes mellitus Linda's thyroiditis Mother History of hypertension Substance use disorder Paternal Grandmother Diabetes mellitus Family/Other Uterine cancer Social History Housing: Apartment Alcohol intake: current Patient Tobacco Use Status: Former Tobacco user Years Smoked: 7 e-Cigarette/Vaping Use: Former Use Patient : No service: No Current occupational status: employed Cognitive needs: No Hearing needs: No Vision needs: No Female Reproductive History Menstrual Age of Menarche: 12 control method: copper IUCD Date of last pap smear: 05/31/23 (negative) Review of Systems Const All systems reviewed & are unremarkable except as noted in HPI and below Physical Exam Vital Signs: Last Vital Signs BP 118/76 07/19/23 14:09 BMI result Body Mass Index 26.1 General: Yes no CVA tenderness External Female Exam: normal external appearance and normal appearance of the urethra Speculum Exam - Vagina: normal appearance of the vagina, normal palpation, no lesions and no masses Speculum Exam - Cervix: normal appearance of the cervix, normal palpation, no lesions, no masses, nontender and Other cervical findings present (IUD thread in place) Bimanual exam- vagina & uterus: normal bimanual exam, normal palpation, uterine size normal, normal palpation, uterine shape normal, No Cervical tenderness present and non-tender Bimanual Exam- Adnexa, other: normal adnexae Back/Spine/Pelvis Back: no CVA tenderness Office Procedures IUD Insert/Removal Details Details: Counseling/Consent: After discussing with the patient the risks of the procedure including bleeding, infection, scar tissue formation, , possible injury to blood vessels or nerves, chronic arm pain, blood transfusion, and irregular unpredictable bleeding Alternative options were discussed with the patient including but not limited: Do nothing. The patient signed the consent and agreed with the plan; all questions answered. Urine test was done in the office and was negative Preop dx: Requesting IUD removal Op: ParaGard IUD removal Post op dx: same EBL= 10 cc Procedure: The patient was put in the dorsal lithotomy position a speculum was inserted in the vagina the IUD thread identified. Using a Jacinda clamp the thread was grasped and the IUD pulled out with no complications. The patient tolerated the procedure well and was advised to use a different method for contraception. Discharge instructions: Instructions were given to the pt to call if temp>100.4, abdominal pain heavy vaginal bleeding, n/v occur. The patient verbalized understanding and all questions answered. This note was generated with a voice recognition program. Some errors may have been overlooked during the review of this note. Sometimes these errors may affect the content or meaning of a given sentence. 46922-MDT Removal Procedure code (CPT) selection complete Results AMB Test Urine AMB Test Urine Negative Last Edit by TAYO Méndez on 07/19/23 14:17 Results Reviewed Results Reviewed: Laboratory Last Values Tst Clinic Negative 07/19/23 14:17 Assessment & Plan Assessment & Plan (1) Encounter for IUD removal: Comment: ParaGard Code(s): Z30.432 - Encounter for removal of intrauterine contraceptive device Plan: ParaGard IUD removed, see procedure note Orders: Orders AMB HCG Urine Test Today Z32.02 - Encounter for test, result negative Coding Level of Care Code Procedure Only Diagnoses Encounter for IUD removal Z30.432 CPT Codes Details - CPT: 84380-OAH Removal ([id number])
== END 2023-07-19 14:41 | disposition home or self-care (01) ==
PROVIDERS: PCP Internal Medicine; Visit Provider Obstetrics & Gynecology
DX: Z30.432 Encounter for removal of intrauterine contraceptive device (principal); Z32.02 Encounter for pregnancy test, result negative
CPT/HCPCS: 58301

== ENCOUNTER → 2023-07-19 14:03 | Outpatient (BNVA) | payer OTHER, SELFPAY | PROVIDERS: PCP Internal Medicine; Visit Provider Obstetrics & Gynecology | DX: Z30.432 Encounter for removal of intrauterine contraceptive device (principal) | CPT/HCPCS: 58301; 81025 ==